=== PATIENT | male | born 1945 | race Caucasian/White ===

== ENCOUNTER → 2016-03-23 | Outpatient (CLI) | payer MEDICARE, OTHER ==
[~2016-03-23] MED LIST: ASPI1TAB6 PO; ATEN25TA PO; AUGM875T27 PO; CRES20TA PO; FISH1000 PO; FLAX1200 PO; LISI10TA4 PO; MULTTAB63 PO; Multivitamin PO; NIAC250C13 PO; Osteo Bi-Flex PO; SIME180C PO; TYLE1TAB5 PO; TYLE325T5 PO; [UNRECOGNIZED DRUG - OTHER] PO
== END ==
LOC: M WUC 13:35
PROVIDERS: ATTEND Physician Assistant
DX: M10.9 Gout, unspecified (principal)

== ENCOUNTER → 2017-02-12 | Outpatient (CLI) | payer MEDICARE, OTHER ==
[2017-02-12 12:31] LABS: ANION GAP 6 MEQ/L (8-16); BLOOD UREA NITROGEN 16 MG/DL (7-18); CALCIUM LEVEL 9.5 MG/DL (8.8-10.2); CARBON DIOXIDE LEVEL 29 MEQ/L (21-32); CHLORIDE LEVEL 107 MEQ/L (98-107); CREATININE FOR GFR 1.17 MG/DL (0.70-1.30); GLOMERULAR FILTRATION RATE > 60.0 (>49); GLUCOSE, FASTING 107 MG/DL (80-110); POTASSIUM SERUM 4.3 MEQ/L (3.5-5.1); SODIUM LEVEL 142 MEQ/L (136-145)
== END ==
LOC: M LAB 11:08
DX: E11.9 Type 2 diabetes mellitus without complications (principal)
CPT/HCPCS: 80048

== ENCOUNTER → 2017-10-23 | Outpatient (CLI) | payer MEDICARE, OTHER | LOC: M WUC 13:03 | DX: M54.41 Lumbago with sciatica, right side (principal) | CPT/HCPCS: 72110 ==

== ENCOUNTER → 2017-11-11 | Outpatient (REF) | payer MEDICARE, OTHER ==
[2017-11-13 08:08] LABS: LDL DIRECT 76 mg/dL (0-99)
== END ==
LOC: M LAB REF 17:42
DX: E78.5 Hyperlipidemia, unspecified (principal)
CPT/HCPCS: 83721

== ENCOUNTER → 2018-05-15 | Outpatient (REF) | payer MEDICARE, OTHER ==
[~2018-05-15] MED LIST changes: -AUGM875T27 PO; +AUGM875T28 PO; -CRES20TA PO; +CRES20TA2 PO
[2018-05-17 09:37] LABS: LDL DIRECT 82 mg/dL (0-99)
== END ==
LOC: M LAB REF 17:37
PROVIDERS: ATTEND Family Medicine
DX: E78.5 Hyperlipidemia, unspecified (principal)

== ENCOUNTER 2018-08-06 09:52 | Emergency (ER) | payer MEDICARE, OTHER ==
[~2018-08-06] VITALS: Ht 177.8 cm; Wt 102.3 kg
[2018-08-06] MEDS ORDERED: NS 1,000 ML IV SCH (10:17)
[2018-08-06] MEDS ORDERED: MECLIZINE 25 MG TABLET PO ONE (10:30)
[2018-08-06] MEDS ORDERED: ONDANSETRON 4MG/2ML VIAL (J2405) IV STA (10:30)
[2018-08-06 10:59] LABS: BASO # 0.1 10^3/uL (0.0-0.2); BASO % 0.9 % (0.0-1.0); EOS # 0.1 10^3/uL (0.0-0.50); EOS % 1.5 % (0.0-3.0); HEMATOCRIT 41.1 % (42.0-52.0); LYMPH # 1.7 10^3/uL (1.5-4.5); LYMPH % 24.3 % (24.0-44.0); MEAN CORPUSCULAR HEMOGLOBIN 32.1 pg (27.0-33.0); MEAN CORPUSCULAR HGB CONC 36.5 g/dl (32.0-36.5); MEAN CORPUSCULAR VOLUME 87.8 fl (80.0-96.0); MONO # 0.5 10^3/uL (0.0-0.8); MONO % 6.7 % (0.0-5.0); NEUTROPHILS # 4.6 10^3/uL (1.8-7.7); NEUTROPHILS % 66.3 % (36.0-66.0); PLATELET COUNT, AUTOMATED 259 10^3/uL (150-450); RED BLOOD COUNT 4.68 10^6/uL (4.30-6.10); WHITE BLOOD COUNT 6.9 10^3/uL (4.0-10.0)
[2018-08-06 11:05] LABS: INR 0.95; PROTHROMBIN TIME 12.4 SECONDS (11.8-14.0)
--- NOTE | 2018-08-06 11:35 | REP ---
Clinical: Acute chest pain . Comparison: 12/08/2012 . Technique: PA and lateral. Findings: The mediastinum and cardiac silhouette are normal. Evidence of prior sternotomy and CABG. The The lung sainz are clear and without acute consolidation, effusion, or pneumothorax. The skeletal structures are intact and normal. Impression: 1. No acute cardiopulmonary process. Electronically Signed by Salomon Krishna MD 08/06/2018 11:27 A
[2018-08-06 11:37] LABS: ALBUMIN 4.1 GM/DL (3.2-5.2); ALT/SGPT 28 U/L (12-78); BILIRUBIN,DIRECT 0.1 MG/DL (0.0-0.2); BILIRUBIN,TOTAL 0.5 MG/DL (0.2-1.0); BLOOD UREA NITROGEN 15 MG/DL (7-18); CALCIUM LEVEL 8.5 MG/DL (8.8-10.2); CARBON DIOXIDE LEVEL 24 MEQ/L (21-32); CHLORIDE LEVEL 113 MEQ/L (98-107); CK-MB VALUE MASS 1.7 NG/ML (<3.6); CPK CREATINE PHOSPHOKINASE 106 U/L (39-308); CREATININE FOR GFR 1.36 MG/DL (0.70-1.30); GLUCOSE, FASTING 138 MG/DL (70-100); MAGNESIUM LEVEL 2.2 MG/DL (1.8-2.4); NT-PRO BNP 153 PG/ML (<125); POTASSIUM SERUM 3.9 MEQ/L (3.5-5.1); SODIUM LEVEL 143 MEQ/L (136-145); TOTAL PROTEIN 7.2 GM/DL (6.4-8.2); TROPONIN I < 0.02 NG/ML (< 0.10)
--- NOTE | 2018-08-06 12:58 | REP ---
Clinical: vertigo Comparison: 12/20/2011. Findings: Age-related atrophy and microvascular ischemic changes are appreciated. The ventricles and sulci are symmetric. Johnston-white differentiation is maintained. There is no evidence for acute intracranial hemorrhage, mass/mass effect, pathology or infarction. No extra-axial fluid collection. Calvarium is intact. Paranasal sinuses and mastoid air cells are clear. Impression: Age related atrophy and microvascular ischemic changes. No acute intracranial hemorrhage, infarction, or mass/mass effect. Electronically Signed by Salomon Krishna MD 08/06/2018 12:49 P
[2018-08-06] MEDS ORDERED: MECL-68 PO (15:43)
[2018-08-06 16:01] VITALS: BP 130/68
--- NOTE | 2018-08-06 16:01 | REP ---
MRI brain without contrast: History: Intractable vertigo. Technique: Axial and sagittal imaging planes are utilized for T1 and T2-weighted scans. Sequences include spin-echo, fast spin echo, FLAIR, and diffusion weighted sequences. MRI findings: No bony calvarial lesion is seen. Craniocervical junction and upper cervical cord are unremarkable. Deep facial and skull base soft tissues are unremarkable. No intraorbital abnormality is seen. There is no MR evidence of significant paranasal sinus disease. No mastoid sinus filling is appreciated. There is mild generalized volume loss. The lateral, third, and fourth ventricles are normal in position and configuration. Vestibular and cochlear apparatus appear normal and symmetric. There is no evidence of middle ear fluid. Diffusion weighted scans show no evidence to suggest acute ischemia. There is no evidence of intracranial hemorrhage. T2-weighted scans demonstrate multiple foci of periventricular and subcortical white matter hyperintensity in the frontal and parietal lobes bilaterally consistent with small vessel changes. No mass or extra-axial fluid collection is seen. Impression: Small vessel changes. Minimal diffuse atrophy. No acute intracranial abnormality. Electronically Signed by Yoshi Sykes MD 08/06/2018 04:43 P
--- NOTE | 2018-08-06 20:08 | ECGEPIP ---
[facility] - ED Test Date: 2018-08-06 Pat Name: CAROLYN OSPINA Department: Room: - Gender: Male [employer]: : 1945 Requested By: Lakesha Gonzalez Order Number: [id number] Reading MD: Anthony Caraballo Measurements Intervals [place] Rate: 59 P: 26 [place]: 161 QRS: QRSD: 101 T: 8 QT: 434 QTc: 431 Interpretive Statements SINUS BRADYCARDIA POSSIBLE LEFT ATRIAL ENLARGEMENT NO PRIORS FOR COMPARISON NONSPECIFIC T-WAVE ABNORMALITY Electronically Signed on 08-06-2018 20:08:04 EDT by Anthony Caraballo
--- NOTE | 2018-08-07 08:48 | REP ---
MR angiography the brain without contrast: History: Intractable vertigo. Technique: 3-D [id number] MR angiography of the brain is acquired in the usual fashion and maximal intensity projection images were generated in rotational format about the vertical and horizontal axes. In addition, source axial T1-weighted images are viewed in cine mode. MR angiographic findings: The distal vertebral arteries are patent and co-dominant. Basilar artery is a little tortuous but widely patent. The posterior cerebral and superior cerebellar vessels are normal and symmetric. The distal internal carotid arteries are unremarkable. Anterior and middle cerebral arteries appear intact. There is no visible vargas aneurysm or arteriovenous malformation. Impression: Unremarkable MR angiography the brain. Electronically Signed by Yoshi Sykes MD 08/06/2018 03:13 P
== END 2018-08-06 16:10 | disposition home or self-care (01) ==
LOC: M ED 09:52
DX: H81.399 Other peripheral vertigo, unspecified ear (principal); E11.9 Type 2 diabetes mellitus without complications; I12.9 Hypertensive chronic kidney disease with stage 1 through stage 4 chronic kidney disease, or unspecified chronic kidney disease; N18.9 Chronic kidney disease, unspecified; E78.5 Hyperlipidemia, unspecified; I25.10 Atherosclerotic heart disease of native coronary artery without angina pectoris; I25.2 Old myocardial infarction; D64.9 Anemia, unspecified; Z79.899 Other long term (current) drug therapy; Z79.82 Long term (current) use of aspirin; Z88.8 Allergy status to other drugs, medicaments and biological substances
CPT/HCPCS: 70450; 70544; 70551; 71045; 80048; 80076; 82550; 82553; 83735; 83880; 84443; 84484; 85025; 85610; 93005; 93041; 94760; 96374; 96375; 96376; 99285; J2405; J3360

== ENCOUNTER → 2019-09-01 | Outpatient (CLI) | payer MEDICARE, OTHER ==
[~2019-09-01] MED LIST changes: +ALLO100T PO; +ASPI-261 PO; +FENO48TA7 PO; +FLAX1CAP5 PO; +MAPA500T2 PO; +MECL1TAB31 PO; +MULTCAP PO
== END ==
LOC: M LABSMTC 10:00
PROVIDERS: ATTEND Anesthesiology
DX: Z01.818 Encounter for other preprocedural examination (principal); Z11.59 Encounter for screening for other viral diseases; Z20.828 Contact with and (suspected) exposure to other viral communicable diseases
CPT/HCPCS: C9803; U0003

== ENCOUNTER → 2019-12-15 | Outpatient (CLI) | payer MEDICARE, OTHER | LOC: M LABSMTC 10:25 | PROVIDERS: ATTEND Ophthalmology | DX: Z20.828 Contact with and (suspected) exposure to other viral communicable diseases (principal) ==

== ENCOUNTER → 2020-01-05 | Outpatient (CLI) | payer MEDICARE, OTHER ==
[~2020-01-05] MED LIST changes: -ASPI-261 PO; +ASPI-559 PO
== END ==
LOC: M LABSMTC 09:55
PROVIDERS: ATTEND Ophthalmology
DX: Z01.812 Encounter for preprocedural laboratory examination (principal); Z20.828 Contact with and (suspected) exposure to other viral communicable diseases

== ENCOUNTER → 2020-01-17 | Outpatient (CLI) | payer MEDICARE, OTHER ==
[~2020-01-17] MED LIST changes: +COMBAER6 INH; +PROAAER10 INH
== END ==
LOC: M LABSMTC 12:45 → EEVIPCON 12:45
PROVIDERS: ATTEND Family Medicine
DX: Z20.828 Contact with and (suspected) exposure to other viral communicable diseases (principal)

== ENCOUNTER 2020-01-20 11:58 | Emergency (ER) | payer MEDICARE, OTHER ==
[~2020-01-20] VITALS: Ht 177.8 cm; Wt 97.6 kg
[~2020-01-20 11:58] MED LIST changes: -COMBAER6 INH; -PROAAER10 INH
[2020-01-20] MEDS ORDERED: ACETAMINOPHEN 325 MG TAB PO ONE (13:15)
[2020-01-20] MEDS: COMBIVENT RESPIMAT 100-20MCG INHALER 4GM INH SCH ×3 (13:35→15:43)
[2020-01-20 13:36] LABS: VENOUS BASE EXCESS -0.5 (-2.0-2.0); VENOUS HCO3 25.4 MEQ/L (23.0-27.0); VENOUS O2 SATURATION 63.7 % (60.0-80.0); VENOUS PARTIAL PRESSURE CO2 46.4 mmHg (38.0-50.0); VENOUS PARTIAL PRESSURE O2 33.3 mmHg (30.0-50.0); VENOUS PH 7.357 UNITS (7.330-7.430); VENOUS STANDARD HCO3 23.3 MEQ/L; VENOUS TOTAL CO2 26.9 MEQ/L (24.0-28.0)
[2020-01-20 13:41] LABS: BASO % 0.3 % (0.0-1.0); HEMOGLOBIN 13.7 g/dl (13.5-17.5); LYMPH # 0.7 10^3/uL (1.5-5.0); LYMPH % 11.8 % (24.0-44.0); MEAN CORPUSCULAR HEMOGLOBIN 29.3 pg (27.0-33.0); MEAN CORPUSCULAR HGB CONC 33.4 g/dl (32.0-36.5); MEAN CORPUSCULAR VOLUME 87.8 fl (80.0-96.0); MONO # 0.4 10^3/uL (0.0-0.8); MONO % 5.6 % (0.0-5.0); NEUTROPHILS # 5.2 10^3/uL (1.5-8.5); NEUTROPHILS % 81.8 % (36.0-66.0); PLATELET COUNT, AUTOMATED 215 10^3/uL (150-450); RED BLOOD COUNT 4.67 10^6/uL (4.30-6.10); WHITE BLOOD COUNT 6.3 10^3/uL (4.0-10.0)
[2020-01-20 14:07] LABS: ALBUMIN 3.4 GM/DL (3.2-5.2); ALT/SGPT 22 U/L (12-78); BILIRUBIN,DIRECT 0.4 MG/DL (0.0-0.2); BILIRUBIN,TOTAL 0.7 MG/DL (0.2-1.0); BLOOD UREA NITROGEN 21 MG/DL (7-18); CALCIUM LEVEL 8.4 MG/DL (8.8-10.2); CARBON DIOXIDE LEVEL 25 MEQ/L (21-32); CHLORIDE LEVEL 103 MEQ/L (98-107); CK-MB VALUE MASS < 1.0 NG/ML (<3.6); CPK CREATINE PHOSPHOKINASE 69 U/L (39-308); CREATININE FOR GFR 1.22 MG/DL (0.70-1.30); GLOMERULAR FILTRATION RATE > 60.0 (>42); GLUCOSE, FASTING 101 MG/DL (70-100); MB/CK RELATIVE INDEX 1.45 (< OR =4); NT-PRO BNP 222 PG/ML (<125); POTASSIUM SERUM 3.9 MEQ/L (3.5-5.1); SODIUM LEVEL 136 MEQ/L (136-145); TOTAL PROTEIN 6.6 GM/DL (6.4-8.2); TROPONIN I < 0.02 NG/ML (< 0.10)
--- NOTE | 2020-01-20 14:49 | REP ---
INDICATION: DYSPNEA/COUGH. COMPARISON: Comparison chest x-ray August 06, 2018.. TECHNIQUE: Sitting AP portable chest x-ray. FINDINGS: Monitoring electrodes are seen. The patient is status post prior median sternotomy. Mild cardiomegaly is observed. The aorta is tortuous as before. There is a new peripheral alveolar infiltrate in the left mid lung field consistent with pneumonia. This has somewhat ill-defined but rounded configuration and a follow-up is recommended. There is slight blunting of the lateral pleural angles on both sides. Pulmonary vasculature is not increased. There is also an area parenchymal opacity in the right upper lobe peripherally which is new. IMPRESSION: New infiltrates left mid lung zone and right upper lobe region. Consistent with pneumonia. Cardiomegaly. Prior sternotomy. Follow-up suggested. <Electronically signed by Toan Sykes > 01/20/20 [id number]
[2020-01-20] MEDS ORDERED: PROAAER10 INH (15:29)
[2020-01-20] MEDS ORDERED: COMBAER6 INH (15:29)
[2020-01-20 15:45] VITALS: BP 122/63
--- NOTE | 2020-01-20 18:20 | ECGEPIP ---
[facility] - ED Test Date: 2020-01-20 Pat Name: CAROLYN OSPINA Department: Room: - Gender: Male [employer] Specialist: sara : 1945 Requested By: CORNELIO ZUNIGA Order Number: [id number] Reading MD: Shanthi Bedolla Measurements Intervals [place] Rate: 96 P: 15 [place]: 148 QRS: -12 QRSD: 93 T: 29 QT: 345 QTc: 436 Interpretive Statements SINUS RHYTHM NONSPECIFIC ST & T-WAVE ABNORMALITY LEFTWARD AXIS CW 08/07/[address] T WAVE CHANGES Electronically Signed on 01-20-2020 18:20:06 EST by Shanthi Bedolla
--- NOTE | 2020-01-20 19:20 | ED PDOC ---
Post-Departure Follow-Up cxr-p faxed to dr phillips for fu Shanthi Raza MD Jan 20, 2020 19:20
== END 2020-01-20 16:00 | disposition home or self-care (01) ==
LOC: M ED 11:58
DX: J12.81 Pneumonia due to SARS-associated coronavirus (principal); Z79.82 Long term (current) use of aspirin; Z79.899 Other long term (current) drug therapy; Z88.6 Allergy status to analgesic agent; Z88.8 Allergy status to other drugs, medicaments and biological substances